=== PATIENT | female | born 1990 | race Caucasian/White ===

== ENCOUNTER → 2023-10-30 | Outpatient (CLI) | payer BC ==
[2023-10-30 18:34] LABS: Source, Urine Clean Catch
[2023-10-30 19:30] LABS: BASOPHILS ABSOLUTE AUTO 0.04 K/mm3 (0.00-0.23); BASOPHILS PERCENT AUTO 0 % (0-2); EOSINOPHILS ABSOLUTE AUTO 0.11 K/mm3 (0.00-0.68); EOSINOPHILS PERCENT AUTO 1 % (0-6); Hematocrit 43.1 % (33.0-51.0); Hemoglobin 14.5 g/dL (11.5-16.0); IMMATURE GRAN ABSOLUTE AUTO 0.04 K/mm3 (0.00-0.10); IMMATURE GRAN PERCENT AUTO 0 % (0-1); LYMPHOCYTES ABSOLUTE AUTO 2.17 K/mm3 (0.84-5.20); LYMPHOCYTES PERCENT AUTO 21 % (21-46); MONOCYTES ABSOLUTE AUTO 0.61 K/mm3 (0.16-1.47); MONOCYTES PERCENT AUTO 6 % (4-13); Mean Corpuscular HGB Conc 33.6 g/dL (31.5-36.5); Mean Corpuscular Volume 89 fL (80-100); Mean Platelet Volume 10.3 fL (9.1-12.4); NEUTROPHILS ABSOLUTE AUTO 7.46 K/mm3 (1.96-9.15); NEUTROPHILS PERCENT AUTO 72 % (41-73); Platelet Count 284 K/mm3 (150-400); RDW Coefficient Variation 12.5 % (11.7-14.2); RDW Standard Deviation 41.3 fL (35.1-46.3); Red Blood Cell Count 4.84 M/mm3 (3.80-5.20); White Blood Cell Count 10.43 K/mm3 (4.00-11.30)
[2023-10-30 19:36] LABS: Appearance, Urine Clear (Clear); Bilirubin, Urine Neg (Neg); Blood, Urine 3+ (Neg); Color, Urine Yellow (P-Yellow); Glucose Qualitative, Urine Neg (Neg); Ketones, Urine 3+ (Neg); Leukocyte Esterase, Urine 2+ (Neg); Nitrite, Urine Neg (Neg); Protein, Urine 2+ (Neg); Specific Gravity, Urine 1.025 (1.003-1.022); Urobilinogen, Urine 2+ (Normal)
[2023-10-30 19:47] LABS: Amorphous Light (0-Heavy); Bacteria Few /hpf; Squamous Epithelial Cells Mod /hpf (Few)
[2023-11-02 16:18] LABS: HEPATITIS C AB CIA INTERP Negative (Negative); HEPATITIS C ANTIBODY CIA INDEX 0.07 IV
[2023-11-02 18:07] LABS: HIV 1,2 COMBO ANTIGEN/ANTIBODY Negative (Negative)
[2023-11-02 21:03] LABS: HEPATITIS B SURFACE ANTIGEN Negative (Negative)
== END ==
LOC: LAB 18:31 → LAB SHORT 18:31
PROVIDERS: Registered Nurse Community Health
DX: Z34.91 Encounter for supervision of normal pregnancy, unspecified, first trimester (principal)
CPT/HCPCS: 81001; 84443; 86803; 87086; 87340; 87389

== ENCOUNTER → 2024-04-05 | Outpatient (CLI) | payer BC ==
[2024-04-05 18:05] LABS: Hematocrit 35.2 % (33.0-51.0); Hemoglobin 11.9 g/dL (11.5-16.0)
== END ==
LOC: LAB SHORT 15:52 → LAB 15:52
PROVIDERS: Registered Nurse Community Health
DX: Z34.93 Encounter for supervision of normal pregnancy, unspecified, third trimester (principal)
CPT/HCPCS: 36415; 82950; 85014; 85018

== ENCOUNTER → 2024-05-18 | Outpatient (CLI) | payer BC | LOC: LAB 18:37 → LAB SHORT 18:37 | DX: Z34.93 Encounter for supervision of normal pregnancy, unspecified, third trimester (principal) | CPT/HCPCS: 87081; 87150 ==

== ENCOUNTER 2024-06-14 19:51 | Inpatient (IN) | payer BC ==
[~2024-06-14] VITALS: Ht 165.1 cm; Wt 100.0 kg
[2024-06-14] MEDS ORDERED: Misoprostol 25 MCG Tab PO SCH (20:09)
[2024-06-14] MEDS ORDERED: Carboprost Tromethamine 250 MCG/ML 1ML Amp IM PRN (20:10)
[2024-06-14] MEDS ORDERED: Methylergonovine Maleate 0.2MG / ML 1ML Amp IM PRN (20:10)
[2024-06-14] MEDS ORDERED: Acetaminophen 500 MG Tab PO PRN (20:10)
[2024-06-14] MEDS ORDERED: FentaNYL Citrate 50 MCG/ML 2 ML Injection IV PRN (20:10)
[2024-06-14] MEDS ORDERED: Misoprostol 200 MCG Tab PR PRN (20:10)
[2024-06-14] MEDS ORDERED: OXYTOCIN/RINGER'S LACTATE 500 ML IV PRN (20:10)
[2024-06-14] MEDS ORDERED: Misoprostol 200 MCG Tab BC PRN (20:10)
[2024-06-14] MEDS ORDERED: Tranexamic Acid 100 ML IV SCH (20:10)
[2024-06-14] MEDS ORDERED: Oxytocin 10 Unit / ML Vial IM PRN (20:10)
[2024-06-14] MEDS ORDERED: Lactated Ringer's 1,000 ML IV PRN ×3 (20:10→20:15)
[2024-06-14] MEDS ORDERED: Ondansetron HCl 2 MG / ML 2ML Vial IV PRN (20:10)
[2024-06-14] MEDS ORDERED: FentaNYL 2mcg/ml-Bup 0.1% Epd 250 ML EPI PRN (20:15)
[2024-06-14] MEDS ORDERED: ePHEDrine Sulfate 50 MG/ML 1ML Injection XX PRN (20:15)
[2024-06-14] MEDS ORDERED: Calcium Carbonate 500 MG Tab Chew PO PRN (20:15)
[2024-06-14] MEDS ORDERED: PRENATAL TABLE1 EAC2 PO (20:28)
[2024-06-14] MEDS ORDERED: Aspir 8181 MG PO (20:28)
[2024-06-14 21:19] VITALS: BP 116/78
[2024-06-14 21:24] LABS: BASOPHILS ABSOLUTE AUTO 0.01 K/mm3 (0.00-0.23); BASOPHILS PERCENT AUTO 0 % (0-2); EOSINOPHILS ABSOLUTE AUTO 0.08 K/mm3 (0.00-0.68); EOSINOPHILS PERCENT AUTO 1 % (0-6); Hematocrit 32.9 % (33.0-51.0); Hemoglobin 11.4 g/dL (11.5-16.0); IMMATURE GRAN ABSOLUTE AUTO 0.05 K/mm3 (0.00-0.10); IMMATURE GRAN PERCENT AUTO 1 % (0-1); LYMPHOCYTES ABSOLUTE AUTO 1.48 K/mm3 (0.84-5.20); LYMPHOCYTES PERCENT AUTO 18 % (21-46); MONOCYTES ABSOLUTE AUTO 0.61 K/mm3 (0.16-1.47); MONOCYTES PERCENT AUTO 8 % (4-13); Mean Corpuscular HGB 31.2 pg (26.0-34.0); Mean Corpuscular HGB Conc 34.7 g/dL (31.5-36.5); Mean Corpuscular Volume 90 fL (80-100); Mean Platelet Volume 9.7 fL (9.1-12.4); NEUTROPHILS ABSOLUTE AUTO 5.92 K/mm3 (1.96-9.15); NEUTROPHILS PERCENT AUTO 73 % (41-73); Platelet Count 193 K/mm3 (150-400); RDW Coefficient Variation 13.2 % (11.7-14.2); Red Blood Cell Count 3.65 M/mm3 (3.80-5.20); White Blood Cell Count 8.15 K/mm3 (4.00-11.30)
[2024-06-15] VITALS (29 sets, daily range): BP systolic 92–213; BP diastolic 52–121
[2024-06-15 11:01] LABS: PCO2 Cord - Arterial 56.1 mmHg (40-50); PO2 Cord - Arterial < 14.0 mmHg (16-20); pH Cord - Arterial 7.16 (7.28-7.35)
[2024-06-15 11:02] LABS: PCO2 Cord - Venous 37.8 mmHg (40-50); PO2 Cord - Venous 24.8 mmHg (28-32); pH Umbilical Cord - Venous 7.33 (7.26-7.35)
[2024-06-15] MEDS ORDERED: Benzocaine Topical Anesthetic Spray 60GM TOP PRN (14:55)
[2024-06-15] MEDS ORDERED: Witch Hazel/Glycerin PADS TOP PRN (14:55)
[2024-06-15] MEDS ORDERED: Ketorolac Tromethamine 30mg Vial IV PRN (14:55)
[2024-06-15] MEDS ORDERED: Ibuprofen 400 MG Tab PO PRN (14:55)
[2024-06-15] MEDS ORDERED: OxyCODONE 5 mg/Acetamin 325 mg TABLET PO PRN (14:55)
[2024-06-15] MEDS ORDERED: Acetaminophen 325 MG TABLET PO PRN (14:55)
[2024-06-16 00:16] VITALS: BP 118/63
[2024-06-16 04:46] VITALS: BP 127/73
[2024-06-16 06:12] LABS: BASOPHILS ABSOLUTE AUTO 0.04 K/mm3 (0.00-0.23); BASOPHILS PERCENT AUTO 0 % (0-2); EOSINOPHILS ABSOLUTE AUTO 0.06 K/mm3 (0.00-0.68); EOSINOPHILS PERCENT AUTO 1 % (0-6); Hematocrit 31.1 % (33.0-51.0); Hemoglobin 10.8 g/dL (11.5-16.0); IMMATURE GRAN ABSOLUTE AUTO 0.07 K/mm3 (0.00-0.10); IMMATURE GRAN PERCENT AUTO 1 % (0-1); LYMPHOCYTES ABSOLUTE AUTO 1.45 K/mm3 (0.84-5.20); LYMPHOCYTES PERCENT AUTO 11 % (21-46); MONOCYTES ABSOLUTE AUTO 0.84 K/mm3 (0.16-1.47); MONOCYTES PERCENT AUTO 7 % (4-13); Mean Corpuscular HGB 31.9 pg (26.0-34.0); Mean Corpuscular HGB Conc 34.7 g/dL (31.5-36.5); Mean Corpuscular Volume 92 fL (80-100); NEUTROPHILS ABSOLUTE AUTO 10.41 K/mm3 (1.96-9.15); NEUTROPHILS PERCENT AUTO 81 % (41-73); Platelet Count 178 K/mm3 (150-400); RDW Coefficient Variation 13.4 % (11.7-14.2); RDW Standard Deviation 44.6 fL (35.1-46.3); Red Blood Cell Count 3.39 M/mm3 (3.80-5.20); White Blood Cell Count 12.87 K/mm3 (4.00-11.30)
[2024-06-16] MEDS ORDERED: Prenatal Vit/FE Fumarate/FA 1 Tab PO SCH (09:00)
[2024-06-16 09:17] VITALS: BP 119/77
[2024-06-16] MEDS ORDERED: IBUP800 PO (10:41)
[2024-06-16 12:38] VITALS: BP 140/72
--- NOTE | 2024-06-16 12:50 | NUR ---
dc home with and baby, denies needing anything, has dc instructions, has folder, has ppfu appts. encouraged to call with questions
== END 2024-06-16 12:48 | disposition home or self-care (01) | DRG 807 ==
LOC: OBS 19:51 → BC 19:53 → OBS 20:08 → BC 20:09
PROVIDERS: ADMIT Registered Nurse Community Health
PROC: 10E0XZZ Delivery of Products of Conception, External Approach (ICD-10-PCS; principal; 2024-06-15)
PROC: 3E0DXGC Introduction of Other Therapeutic Substance into Mouth and Pharynx, External Approach (ICD-10-PCS; 2024-06-15)
PROC: 3E0R3BZ Introduction of Anesthetic Agent into Spinal Canal, Percutaneous Approach (ICD-10-PCS; 2024-06-15)
PROC: 00HU33Z Insertion of Infusion Device into Spinal Canal, Percutaneous Approach (ICD-10-PCS; 2024-06-15)
DX: O34.33 Maternal care for cervical incompetence, third trimester (principal); Z37.0 Single live birth; Z98.890 Other specified postprocedural states; Z79.82 Long term (current) use of aspirin; Z3A.39 39 weeks gestation of pregnancy; O65.5 Obstructed labor due to abnormality of maternal pelvic organs; O70.0 First degree perineal laceration during delivery; O69.81X0 Labor and delivery complicated by cord around neck, without compression, not applicable or unspecified; Z79.899 Other long term (current) drug therapy
CPT/HCPCS: 36415; 51702; 82803; 85025; 86850; 86870; 86900; 86901; A9270; J1885; J2590; J7120